=== PATIENT | female | born 2000 | race Caucasian/White ===

== ENCOUNTER 2021-04-08 21:50 | Emergency (ER) | payer OTHER ==
[~2021-04-08] VITALS: Ht 165.1 cm; Wt 54.4 kg
[2021-04-08 21:50] VITALS: BP 118/74
--- NOTE | 2021-04-08 21:53 | NUR ---
TO LOBBY A/W BED AMBULATORY
--- NOTE | 2021-04-08 22:00 | NUR ---
ca by Dr. Carrera
== END 2021-04-08 22:00 | disposition left against medical advice (07) ==
LOC: MED 21:50
DX: R10.13 Epigastric pain (principal); Z53.21 Procedure and treatment not carried out due to patient leaving prior to being seen by health care provider